=== PATIENT | male | born 1970 | race Caucasian/White ===

== ENCOUNTER 2018-06-21 22:50 | Emergency (ER) | payer OTHER, SELFPAY ==
[2018-06-21 23:02] VITALS: BP 155/107; PULSE 104; RESP 17; TEMP 37.2; O2SAT 98
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
--- NOTE | 2018-06-21 23:33 | DI.CT.S_ITS ---
PROCEDURE: CT ABDOMEN PELVIS W CON INDICATIONS: Rectal pain concern for perirectal abscess TECHNIQUE: After the administration of oral and intravenous contrast, 5 mm thick sections acquired from the diaphragms to the symphysis. 5 mm thick coronal and sagittal reformats were performed. For radiation dose reduction, the following was used: automated exposure control, adjustment of mA and/or kV according to patient size. COMPARISON: [facility], CT, ABDOMEN/PELVIS WITH CONTRAST, 03/17/2007, 8:20. FINDINGS: Image quality: Excellent. ABDOMEN: Lung bases: Lung bases are clear. Heart size is normal. Solid organs: No focal hepatic lesions identified. Gallbladder appears within normal limits without calcified gallstones. Biliary system is non-dilated. Pancreas enhances normally. Spleen is normal in size and enhancement. No adrenal nodules. Kidneys are normal in size and enhancement, without hydronephrosis. Peritoneum and bowel: Stomach, small bowel, and colon loops are normal in caliber and wall thickness. No pericecal inflammatory changes to suggest appendicitis. There is colonic diverticulosis without acute diverticulitis. No discrete perirectal abscess identified. No free fluid or air. Nodes and vessels: No retroperitoneal or mesenteric adenopathy. Aorta and inferior vena cava are normal in caliber. Miscellaneous: No ventral hernias. PELVIS: Genitourinary: Bladder wall thickness is normal. Miscellaneous: No inguinal hernias or adenopathy. Bones: No suspicious bony lesions. No vertebral body compression fractures. IMPRESSION: 1. No evidence of perirectal abscess as clinically queried. 2. Diverticulosis without acute diverticulitis. Dictated by: Huseyin Wylie M.D. on 06/22/2018 at 9:05 Approved by: Huseyin Wylie M.D. on 06/22/2018 at 9:10
--- NOTE | 2018-06-21 23:56 | PC.NURSE ---
Pt states swelling and tenderness to left thigh for past 5 days and is concerned a rectal infection is causing a systemic infection. States has 2 holes in bottom and used a douche, put into hole that isn't anus and pus came out and put a tampon in it. Pt reports drinking whiskey tonight to relieve pain. Pt ambulated 3 blocks from home to ER and has steady gait.
[2018-06-21 23:58] LABS: Add Manual Diff / Slide Review NO; Basophils Percent Auto 0.4 % (0-2); Eosinophils Percent Auto 1.7 % (2-4); Hematocrit 44.9 % (41-53); Hemoglobin 15.7 g/dL (13.5-17.5); Lymphocytes Percent Auto 22.8 % (25-40); Mean Corpuscular HGB Conc 34.9 % (30-36); Mean Corpuscular Hemoglobin 33.5 PG (26-34); Mean Corpuscular Volume 96.2 fL (80-100); Monocytes Percent Auto 9.3 % (3-14); Neutrophils Absolute Auto 4400 /uL (3000-5900); Neutrophils Percent Auto 65.8 % (50-75); Platelet Count 307 X10^3/uL (150-400); Red Blood Cell Count 4.67 X10^6/uL (4.5-5.9); Red Cell Distribution Width 13.2 % (11.6-14.8); White Blood Cell Count 6.7 X10^3/uL (4.5-11.0)
[2018-06-22 00:03] LABS: BUN Creatinine Ratio 18.2 (6-22); Blood Urea Nitrogen 20 mg/dL (9-20); Calcium 9.6 mg/dL (8.4-10.2); Carbon Dioxide 25 mmol/L (22-32); Chloride 105 mmol/L (98-107); Estimated Glomerular Filt Rate > 60.0 mL/min (>60); Glucose 91 mg/dL (70-100); HEMOLYSIS < 15 (0-50); Lactate (Lactic Acid) 0.9 mmol/L (0.7-2.1); Potassium 4.1 mmol/L (3.4-5.1); Sodium 145 mmol/L (137-145)
[2018-06-22] MEDS: SODIUM CHLORIDE 0.9% 1,000 ML 1000 ML IV (00:10)
[2018-06-22 00:18] LABS: Erythrocyte Sedimentation Rate 4 MM/HR (0-15)
[2018-06-22 00:26] LABS: C-Reactive Protein Quant < 0.5 mg/dL (<1.0)
[2018-06-22] MEDS: HYDROCODONE/ACET 5/325 TABLET 1 TAB PO (00:41)
[2018-06-22 01:10] VITALS: BP 142/96; PULSE 88; RESP 15; TEMP 37.2; O2SAT 99
== END 2018-06-22 01:12 | disposition home or self-care (01) ==
PROVIDERS: Emergency Provider Emergency Medicine; PCP Family Medicine
DX: K62.89 Other specified diseases of anus and rectum (principal)
CPT/HCPCS: 36591; 74177; 80048; 83605; 85025; 85651; 86140; 96360; 99283; 99285; Q9967

== ENCOUNTER 2018-08-05 00:56 | Emergency (ER) | payer OTHER, SELFPAY ==
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
[2018-08-05 01:06] VITALS: BP 150/99; PULSE 140; RESP 18; TEMP 36.8; O2SAT 95; BMI 25.7
[2018-08-05] MEDS: TET,DIPH,PERTUSS(ACELL),VAC/PF 0.5 ML SYRINGE IM (01:17)
[2018-08-05] MEDS: SODIUM CHLORIDE 0.9% 1,000 ML 1000 ML IV (01:17)
[2018-08-05 01:44] LABS: Add Manual Diff / Slide Review NO; Basophils Percent Auto 0.8 % (0-2); Eosinophils Percent Auto 1.4 % (2-4); Hematocrit 45.3 % (41-53); Hemoglobin 15.5 g/dL (13.5-17.5); Lymphocytes Percent Auto 27.9 % (25-40); Mean Corpuscular HGB Conc 34.3 % (30-36); Mean Corpuscular Hemoglobin 33.7 PG (26-34); Mean Corpuscular Volume 98.2 fL (80-100); Monocytes Percent Auto 12.2 % (3-14); Neutrophils Absolute Auto 3200 /uL (3000-5900); Neutrophils Percent Auto 57.7 % (50-75); Platelet Count 278 X10^3/uL (150-400); Red Blood Cell Count 4.61 X10^6/uL (4.5-5.9); Red Cell Distribution Width 13.4 % (11.6-14.8); White Blood Cell Count 5.6 X10^3/uL (4.5-11.0)
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
[2018-08-05 01:51] LABS: BUN Creatinine Ratio 13.3 (6-22); Blood Urea Nitrogen 16 mg/dL (9-20); Calcium 9.4 mg/dL (8.4-10.2); Carbon Dioxide 14 mmol/L (22-32); Chloride 106 mmol/L (98-107); Estimated Glomerular Filt Rate > 60.0 mL/min (>60); Glucose 92 mg/dL (70-100); HEMOLYSIS < 15 (0-50); Potassium 3.9 mmol/L (3.4-5.1); Sodium 144 mmol/L (137-145)
[2018-08-05 02:01] LABS: Alanine Aminotransferase 26 IU/L (21-72)
[2018-08-05 02:17] VITALS: BP 122/88; PULSE 106; RESP 11; O2SAT 97
[2018-08-05 03:01] LABS: HIV 1 and 2 Antibody NEGATIVE (NEGATIVE); Hep C Virus Ab w/Reflex Quant NEGATIVE s/c (NEGATIVE)
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
[2018-08-05 03:41] VITALS: BP 114/87; PULSE 98; RESP 13; O2SAT 95
[2018-08-05] MEDS: ACETAMINOPHEN 325 MG TABLET 975 MG PO (03:56)
--- NOTE | 2018-08-05 04:01 | PC.NURSE ---
Pt declined sling at this time.
[2018-08-08 15:17] LABS: Hepatitis B Surf Ab Qualitativ Reactive (Nonreactive)
== END 2018-08-05 04:50 | disposition home or self-care (01) ==
PROVIDERS: Emergency Provider Emergency Medicine; PCP Family Medicine
DX: S01.81XA Laceration without foreign body of other part of head, initial encounter (principal); S01.01XA Laceration without foreign body of scalp, initial encounter; S06.0X9A Concussion with loss of consciousness of unspecified duration, initial encounter; Y00.XXXA Assault by blunt object, initial encounter
CPT/HCPCS: 12002; 12011; 36591; 70450; 70486; 73080; 80048; 84460; 85025; 86703; 86706; 86803; 90471; 93005; 96360; 99283; 99285; 90715

== ENCOUNTER 2018-08-11 20:29 | Emergency (ER) | payer OTHER, SELFPAY ==
[2018-08-11 20:36] VITALS: BP 129/84; PULSE 88; RESP 16; TEMP 36.6; O2SAT 95; BMI 25.7
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
[2018-08-11 22:19] VITALS: BP 131/84; PULSE 91; RESP 15; TEMP 36.8; O2SAT 97
== END 2018-08-11 22:22 | disposition home or self-care (01) ==
PROVIDERS: Emergency Provider Emergency Medicine; PCP Family Medicine
DX: S05.11XA Contusion of eyeball and orbital tissues, right eye, initial encounter (principal); H57.11 Ocular pain, right eye; Y04.2XXA Assault by strike against or bumped into by another person, initial encounter
CPT/HCPCS: 99282; 99283

== ENCOUNTER 2018-09-19 10:59 | Emergency (ER) | payer OTHER, SELFPAY ==
[2018-09-19 11:06] VITALS: BP 139/94; PULSE 90; RESP 15; TEMP 36.8; O2SAT 98; BMI 24.4
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
--- NOTE | 2018-09-23 15:13 | PC.NURSE ---
Pt states that he is feeling better. Pt has followed up with pcp Pt denies any questions Pt does not have any suggestions for improvemnts.
== END 2018-09-19 12:20 | disposition home or self-care (01) ==
PROVIDERS: Emergency Provider Emergency Medicine
DX: S00.83XA Contusion of other part of head, initial encounter (principal); Y04.0XXA Assault by unarmed brawl or fight, initial encounter
CPT/HCPCS: 70450; 70486; 99282; 99284

== ENCOUNTER 2024-09-16 03:13 | Emergency (ER) | payer OTHER, SELFPAY ==
[2024-09-16] VITALS (9 sets, daily range): BP systolic 95–135; BP diastolic 58–100; PULSE 116–147; RESP 18–20; TEMP 36.6; O2SAT 93–99; BMI 26.2
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
--- NOTE | 2024-09-16 04:03 | DI.RAD.S_ITS ---
PROCEDURE: XR FINGER RT MIN 2V INDICATIONS: right thumb pain TECHNIQUE: AP hand, 2 views of the 1st finger(s) acquired. COMPARISON: None. FINDINGS: Bones: No fractures or dislocations. No suspicious bony lesions. Soft tissues: No suspicious soft tissue calcifications. IMPRESSION: No visualized acute fracture or dislocation. However, if clinical concern and/or pain persist, short interval imaging followup in 7-10 days is recommended, as occult injury cannot be definitively excluded. Dictated by: Isi Murphy M.D. on 09/16/2024 at 9:10 Approved by: Isi Murphy M.D. on 09/16/2024 at 9:10
[2024-09-16] MEDS: TET,DIPH,PERTUSS(ACELL),VAC/PF 0.5 ML SYRINGE IM (04:37)
--- NOTE | 2024-09-16 04:59 | EKG_ITS ---
[facility] [address], [place] [address] Test Date: 2024-09-16 Pat Name: Brian Acuna Department: [facility] Room: Gender: Male Messenger Floorperson: : 1970 Requested By: Order Number: [id number] Reading MD: Papa Barbosa MD Measurements Intervals [place] Rate: 106 P: IA: 182 QRS: 143 QRSD: 94 T: 133 QT: 330 QTc: 438 Interpretive Statements Sinus tachycardia Right axis deviation Nonspecific ST abnormality Electronically Signed On 09-16-2024 13:41:04 PST by Papa Barbosa MD
== END 2024-09-16 05:34 | disposition home or self-care (01) ==
PROVIDERS: Emergency Provider Student in an Organized Health Care Education/Training Program
DX: S09.90XA Unspecified injury of head, initial encounter (principal); H53.8 Other visual disturbances; R51.9 Headache, unspecified; M54.2 Cervicalgia; Y04.2XXA Assault by strike against or bumped into by another person, initial encounter; Z23 Encounter for immunization; R00.0 Tachycardia, unspecified; M79.644 Pain in right finger(s)
CPT/HCPCS: 70450; 70486; 72125; 73140; 90471; 93005; 93010; 99283; 99284; 90715